=== PATIENT | female | born 1930 | race Caucasian/White ===

== ENCOUNTER 2018-06-11 14:23 | Emergency (ER) | payer OTHER ==
[~2018-06-11] VITALS: Ht 165.1 cm; Wt 71.2 kg
[~2018-06-11 14:23] MED LIST: ASPIR 8181 MG PO; BREO ELLIPTA 11 EACH IH; DEMADEX10 MG PO; DIGOXIN250 MCG PO; FENTANYL PA50 MCG/HR TRANSDERM; KLOR-CON 1010 MEQ PO; PRILOSEC 20 MG20 MG PO; VERAPAMIL ER240 M1 PO; VITAMIN C500 M1 PO; VITAMIN D1000 UNI1 PO
[2018-06-11 17:00] VITALS: BP 164/79
== END 2018-06-11 19:26 | disposition home or self-care (01) ==
LOC: ER 14:23
DX: S40.022A Contusion of left upper arm, initial encounter (principal); M19.90 Unspecified osteoarthritis, unspecified site; J44.9 Chronic obstructive pulmonary disease, unspecified; E78.00 Pure hypercholesterolemia, unspecified; F32.9 Major depressive disorder, single episode, unspecified; I50.9 Heart failure, unspecified; Z96.651 Presence of right artificial knee joint; Z90.710 Acquired absence of both cervix and uterus; Z88.6 Allergy status to analgesic agent; Z88.8 Allergy status to other drugs, medicaments and biological substances; W22.8XXA Striking against or struck by other objects, initial encounter; Y93.89 Activity, other specified; Y92.89 Other specified places as the place of occurrence of the external cause; Y99.8 Other external cause status

== ENCOUNTER → 2018-12-08 | Outpatient (CLI) | payer OTHER, MEDICARE | LOC: RAD 11:33 | DX: J18.9 Pneumonia, unspecified organism (principal); J98.11 Atelectasis; J44.9 Chronic obstructive pulmonary disease, unspecified ==